=== PATIENT | male | born 1995 | race African-American/Black ===

== ENCOUNTER 2017-01-20 21:51 | Inpatient (IN) | payer BC ==
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
[2017-01-20 22:30] LABS: BASOPHILS 0.3 %; BASOPHILS ABSOLUTE 0.04 10/3/uL (0.0-0.16); EOSINOPHILS 1.3 %; EOSINOPHILS ABSOLUTE 0.18 10/3/uL (0.0-0.53); ER CBC TAT 0 Hrs 08 Mins; HEMATOCRIT 33.9 % (40.0-51.0); HEMOGLOBIN 11.1 g/dL (13.6-17.8); IMMATURE GRANULOCYTES 0.2 %; IMMATURE GRANULOCYTES ABSOLUTE 0.03 10/3/uL (0.0-0.11); LYMPHOCYTES 8.8 %; LYMPHOCYTES ABSOLUTE 1.22 10/3/uL (0.67-4.30); MEAN CORPUS HGB CONC 32.7 g/dL (32.0-36.0); MEAN CORPUSCULAR HEMOGLOB 25.9 pg (26.0-34.0); MEAN CORPUSCULAR VOLUME 79.2 fL (80-100); MEAN PLATELET VOLUME 9.9 fL (9.2-13.0); MONOCYTES ABSOLUTE 1.94 10/3/uL (0.21-1.20); NEUTROPHILS 75.4 %; NEUTROPHILS ABSOLUTE 10.48 10/3/uL (2.02-8.40); PLATELET COUNT 316 10/3/uL (150-400); RBC DISTRIBUTION WIDTH 13.2 % (12.0-16.0); RED CELL COUNT 4.28 10/6/uL (4.7-6.1); WHITE BLOOD CELLS 13.9 10/3/uL (4.5-10.5)
[2017-01-20 22:31] LABS: MANUAL DIFF NO %
[2017-01-20 22:36] LABS: INTERNATIONAL NORMAL RATI 1.3 UNITS (-); PARTIAL THROMBO TIME 27.8 SEC (22.5-37.2)
[2017-01-20 22:42] LABS: A/G RATIO 0.5 (0.7-1.9); ALBUMIN 2.9 G/DL (3.5-5.0); ALKALINE PHOSPHATASE 79 U/L (43-122); BUN (BLOOD UREA NITROGEN) 15 MG/DL (5-25); CALCIUM, SERUM 8.8 MG/DL (8.5-10.4); CHLORIDE, SERUM 95 MMOL/L (96-112); CO2 (CARBON DIOXIDE) 28 MMOL/L (23-31); CREATININE 1.01 MG/DL (0.70-1.30); GFR AFRICAN AMERICAN 124 ML/MIN (>=60); GFR NON AFRICAN AMERICAN 107 ML/MIN (>=60); GLOBULIN 5.3 G/DL (2.5-4.1); GLUCOSE, SERUM 107 MG/DL (60-99); POTASSIUM, SERUM 4.3 MMOL/L (3.5-5.2); SGOT(AST) 64 U/L (8-40); SGPT(ALT) 68 U/L (5-65); SODIUM, SERUM 132 MMOL/L (135-145); TOTAL BILIRUBIN 0.6 MG/DL (0-1.2); TOTAL PROTEIN 8.2 G/DL (6.0-8.5)
[2017-01-21] MEDS ORDERED: METHOC500B PO (00:22)
[2017-01-21] MEDS ORDERED: LOVENOX SC (00:22)
[2017-01-21 00:46] LABS: ASCORBIC ACID (UR NOT ORDER) NEG (NEG); BILIRUBIN, URINE NEGATIVE (NEG); ER URINALYSIS TAT 0 Hrs 20 Mins; KETONE, URINE NEGATIVE (NEG); LEUKOCYTE ESTERASE(NOT OR SMALL (NEG); NITRITE (URINE) NEG (NEG); WBC (NOT ORDERED) (RFLEX) 20 (0-5)
[2017-01-21 00:54] LABS: INFLUENZA A SCREEN NEGATIVE (NEGATIVE); INFLUENZA B SCREEN NEGATIVE (NEGATIVE)
[2017-01-21 00:56] LABS: PROCALCITONIN 0.99 ng/mL (<0.5)
[2017-01-22 04:24] LABS: BASOPHILS 0.1 %; BASOPHILS ABSOLUTE 0.02 10/3/uL (0.0-0.16); EOSINOPHILS 4.4 %; EOSINOPHILS ABSOLUTE 0.61 10/3/uL (0.0-0.53); HEMATOCRIT 30.9 % (40.0-51.0); HEMOGLOBIN 9.9 g/dL (13.6-17.8); IMMATURE GRANULOCYTES 0.4 %; IMMATURE GRANULOCYTES ABSOLUTE 0.05 10/3/uL (0.0-0.11); LYMPHOCYTES 8.8 %; LYMPHOCYTES ABSOLUTE 1.23 10/3/uL (0.67-4.30); MEAN CORPUSCULAR HEMOGLOB 25.4 pg (26.0-34.0); MEAN CORPUSCULAR VOLUME 79.2 fL (80-100); MEAN PLATELET VOLUME 10.7 fL (9.2-13.0); MONOCYTES 10.7 %; NEUTROPHILS 75.6 %; NEUTROPHILS ABSOLUTE 10.56 10/3/uL (2.02-8.40); PLATELET COUNT 325 10/3/uL (150-400); RBC DISTRIBUTION WIDTH 13.4 % (12.0-16.0)
[2017-01-22 04:26] LABS: MANUAL DIFF NO %
[2017-01-22 04:54] LABS: A/G RATIO 0.5 (0.7-1.9); ALBUMIN 2.4 G/DL (3.5-5.0); ALKALINE PHOSPHATASE 71 U/L (43-122); BUN (BLOOD UREA NITROGEN) 12 MG/DL (5-25); CALCIUM, SERUM 8.1 MG/DL (8.5-10.4); CHLORIDE, SERUM 100 MMOL/L (96-112); CO2 (CARBON DIOXIDE) 28 MMOL/L (23-31); CREATININE 0.66 MG/DL (0.70-1.30); DIRECT BILIRUBIN 0.1 MG/DL (0.0-0.4); GFR AFRICAN AMERICAN 162 ML/MIN (>=60); GFR NON AFRICAN AMERICAN 140 ML/MIN (>=60); GLOBULIN 4.4 G/DL (2.5-4.1); GLUCOSE, SERUM 123 MG/DL (60-99); INDIRECT BILIRUBIN(NOT ORDER) 0.2 MG/DL (0.1-0.9); SGOT(AST) 51 U/L (8-40); SGPT(ALT) 48 U/L (5-65); SODIUM, SERUM 135 MMOL/L (135-145); TOTAL BILIRUBIN 0.3 MG/DL (0-1.2); TOTAL PROTEIN 6.8 G/DL (6.0-8.5)
[2017-01-22 04:58] LABS: POTASSIUM, SERUM 3.4 MMOL/L (3.5-5.2)
[2017-01-23 06:03] LABS: BASOPHILS 0.2 %; BASOPHILS ABSOLUTE 0.02 10/3/uL (0.0-0.16); EOSINOPHILS 4.5 %; EOSINOPHILS ABSOLUTE 0.49 10/3/uL (0.0-0.53); HEMATOCRIT 29.5 % (40.0-51.0); HEMOGLOBIN 9.5 g/dL (13.6-17.8); IMMATURE GRANULOCYTES 0.3 %; IMMATURE GRANULOCYTES ABSOLUTE 0.03 10/3/uL (0.0-0.11); LYMPHOCYTES 9.4 %; LYMPHOCYTES ABSOLUTE 1.02 10/3/uL (0.67-4.30); MEAN CORPUS HGB CONC 32.2 g/dL (32.0-36.0); MEAN CORPUSCULAR HEMOGLOB 25.7 pg (26.0-34.0); MEAN CORPUSCULAR VOLUME 79.7 fL (80-100); MEAN PLATELET VOLUME 10.6 fL (9.2-13.0); MONOCYTES 10.8 %; MONOCYTES ABSOLUTE 1.17 10/3/uL (0.21-1.20); NEUTROPHILS 74.8 %; NEUTROPHILS ABSOLUTE 8.13 10/3/uL (2.02-8.40); PLATELET COUNT 338 10/3/uL (150-400); RBC DISTRIBUTION WIDTH 13.4 % (12.0-16.0); WHITE BLOOD CELLS 10.9 10/3/uL (4.5-10.5)
[2017-01-23 06:06] LABS: MANUAL DIFF NO %
[2017-01-24 04:42] LABS: BASOPHILS 0.3 %; BASOPHILS ABSOLUTE 0.03 10/3/uL (0.0-0.16); EOSINOPHILS 6.7 %; EOSINOPHILS ABSOLUTE 0.72 10/3/uL (0.0-0.53); HEMATOCRIT 29.6 % (40.0-51.0); HEMOGLOBIN 9.5 g/dL (13.6-17.8); IMMATURE GRANULOCYTES 0.3 %; IMMATURE GRANULOCYTES ABSOLUTE 0.03 10/3/uL (0.0-0.11); LYMPHOCYTES 14.9 %; LYMPHOCYTES ABSOLUTE 1.61 10/3/uL (0.67-4.30); MEAN CORPUS HGB CONC 32.1 g/dL (32.0-36.0); MEAN CORPUSCULAR HEMOGLOB 25.8 pg (26.0-34.0); MEAN CORPUSCULAR VOLUME 80.4 fL (80-100); MEAN PLATELET VOLUME 10.6 fL (9.2-13.0); MONOCYTES 8.6 %; MONOCYTES ABSOLUTE 0.93 10/3/uL (0.21-1.20); NEUTROPHILS 69.2 %; NEUTROPHILS ABSOLUTE 7.49 10/3/uL (2.02-8.40); PLATELET COUNT 361 10/3/uL (150-400); RBC DISTRIBUTION WIDTH 13.6 % (12.0-16.0); RED CELL COUNT 3.68 10/6/uL (4.7-6.1); WHITE BLOOD CELLS 10.8 10/3/uL (4.5-10.5)
[2017-01-24 04:43] LABS: MANUAL DIFF NO %
[2017-01-24 04:53] LABS: BUN (BLOOD UREA NITROGEN) 13 MG/DL (5-25); CALCIUM, SERUM 8.6 MG/DL (8.5-10.4); CHLORIDE, SERUM 101 MMOL/L (96-112); CO2 (CARBON DIOXIDE) 28 MMOL/L (23-31); CREATININE 0.65 MG/DL (0.70-1.30); GFR AFRICAN AMERICAN 163 ML/MIN (>=60); GFR NON AFRICAN AMERICAN 141 ML/MIN (>=60); GLUCOSE, SERUM 100 MG/DL (60-99); POTASSIUM, SERUM 3.6 MMOL/L (3.5-5.2); SODIUM, SERUM 139 MMOL/L (135-145)
[2017-01-24 13:12] LABS: % IRON SAT 13 % (20-50); FERRITIN 253 NG/ML (26-388); IRON BINDING CAPACITY 137 MCG/DL (250-450); IRON, SERUM 18 MCG/DL (31-162)
[2017-01-24 13:41] LABS: PROCALCITONIN 0.43 ng/mL (<0.5)
[2017-01-24 16:27] LABS: WBC (NOT ORDERED) (RFLEX) 0 (0-5)
[2017-01-24 17:09] LABS: ASCORBIC ACID (UR NOT ORDER) 20 (NEG); BILIRUBIN, URINE NEGATIVE (NEG); KETONE, URINE NEGATIVE (NEG); LEUKOCYTE ESTERASE(NOT OR NEG (NEG)
[2017-01-25 07:01] LABS: BASOPHILS 0.3 %; BASOPHILS ABSOLUTE 0.03 10/3/uL (0.0-0.16); EOSINOPHILS 7.7 %; EOSINOPHILS ABSOLUTE 0.69 10/3/uL (0.0-0.53); HEMOGLOBIN 9.2 g/dL (13.6-17.8); IMMATURE GRANULOCYTES 0.2 %; IMMATURE GRANULOCYTES ABSOLUTE 0.02 10/3/uL (0.0-0.11); LYMPHOCYTES 13.8 %; LYMPHOCYTES ABSOLUTE 1.23 10/3/uL (0.67-4.30); MEAN CORPUS HGB CONC 31.7 g/dL (32.0-36.0); MEAN CORPUSCULAR HEMOGLOB 25.1 pg (26.0-34.0); MEAN PLATELET VOLUME 10.1 fL (9.2-13.0); MONOCYTES 9.9 %; MONOCYTES ABSOLUTE 0.88 10/3/uL (0.21-1.20); NEUTROPHILS 68.1 %; NEUTROPHILS ABSOLUTE 6.07 10/3/uL (2.02-8.40); PLATELET COUNT 352 10/3/uL (150-400); RBC DISTRIBUTION WIDTH 13.8 % (12.0-16.0); RED CELL COUNT 3.67 10/6/uL (4.7-6.1); WHITE BLOOD CELLS 8.9 10/3/uL (4.5-10.5)
[2017-01-25 07:02] LABS: MANUAL DIFF NO %
[2017-01-25 07:06] LABS: BUN (BLOOD UREA NITROGEN) 13 MG/DL (5-25); CALCIUM, SERUM 8.9 MG/DL (8.5-10.4); CHLORIDE, SERUM 101 MMOL/L (96-112); CO2 (CARBON DIOXIDE) 26 MMOL/L (23-31); CREATININE 0.58 MG/DL (0.70-1.30); GFR AFRICAN AMERICAN 171 ML/MIN (>=60); GFR NON AFRICAN AMERICAN 148 ML/MIN (>=60); GLUCOSE, SERUM 86 MG/DL (60-99); POTASSIUM, SERUM 3.8 MMOL/L (3.5-5.2); SODIUM, SERUM 136 MMOL/L (135-145)
[2017-01-25 08:40] LABS: PLATELET ESTIMATE ADQ (ADEQUATE)
[2017-01-25 08:41] LABS: RBC MORPHOLOGY NORM (NORMAL)
[2017-01-26 18:11] LABS: A/G RATIO 0.5 (0.7-1.9); ALBUMIN 2.2 G/DL (3.5-5.0); ALKALINE PHOSPHATASE 76 U/L (43-122); BUN (BLOOD UREA NITROGEN) 10 MG/DL (5-25); CALCIUM, SERUM 8.8 MG/DL (8.5-10.4); CHLORIDE, SERUM 102 MMOL/L (96-112); CO2 (CARBON DIOXIDE) 23 MMOL/L (23-31); CREATININE 0.55 MG/DL (0.70-1.30); GFR AFRICAN AMERICAN 175 ML/MIN (>=60); GFR NON AFRICAN AMERICAN 151 ML/MIN (>=60); GLOBULIN 4.5 G/DL (2.5-4.1); GLUCOSE, SERUM 75 MG/DL (60-99); POTASSIUM, SERUM 4.5 MMOL/L (3.5-5.2); SGOT(AST) 51 U/L (8-40); SGPT(ALT) 61 U/L (5-65); SODIUM, SERUM 137 MMOL/L (135-145); TOTAL BILIRUBIN 0.4 MG/DL (0-1.2); TOTAL PROTEIN 6.7 G/DL (6.0-8.5)
[2017-01-27 05:29] LABS: BASOPHILS 0.2 %; BASOPHILS ABSOLUTE 0.03 10/3/uL (0.0-0.16); EOSINOPHILS 4.1 %; HEMOGLOBIN 9.4 g/dL (13.6-17.8); IMMATURE GRANULOCYTES 0.4 %; IMMATURE GRANULOCYTES ABSOLUTE 0.06 10/3/uL (0.0-0.11); LYMPHOCYTES 11.6 %; LYMPHOCYTES ABSOLUTE 1.69 10/3/uL (0.67-4.30); MEAN CORPUSCULAR HEMOGLOB 26.3 pg (26.0-34.0); MEAN CORPUSCULAR VOLUME 78.2 fL (80-100); MEAN PLATELET VOLUME 9.8 fL (9.2-13.0); MONOCYTES 8.4 %; MONOCYTES ABSOLUTE 1.22 10/3/uL (0.21-1.20); NEUTROPHILS 75.3 %; NEUTROPHILS ABSOLUTE 10.97 10/3/uL (2.02-8.40); RBC DISTRIBUTION WIDTH 14.1 % (12.0-16.0); RED CELL COUNT 3.58 10/6/uL (4.7-6.1)
[2017-01-27 05:30] LABS: MANUAL DIFF NO %; MEAN CORPUS HGB CONC 33.6 g/dL (32.0-36.0); PLATELET COUNT 500 10/3/uL (150-400); WHITE BLOOD CELLS 14.6 10/3/uL (4.5-10.5)
[2017-01-27 05:38] LABS: BUN (BLOOD UREA NITROGEN) 10 MG/DL (5-25); CALCIUM, SERUM 8.5 MG/DL (8.5-10.4); CHLORIDE, SERUM 104 MMOL/L (96-112); CO2 (CARBON DIOXIDE) 27 MMOL/L (23-31); CREATININE 0.68 MG/DL (0.70-1.30); GFR AFRICAN AMERICAN 160 ML/MIN (>=60); GFR NON AFRICAN AMERICAN 138 ML/MIN (>=60); GLUCOSE, SERUM 105 MG/DL (60-99); POTASSIUM, SERUM 3.6 MMOL/L (3.5-5.2); SODIUM, SERUM 140 MMOL/L (135-145)
[2017-01-27 17:39] LABS: PROCALCITONIN 0.24 ng/mL (<0.5)
[2017-01-28 06:24] LABS: BASOPHILS 0.2 %; BASOPHILS ABSOLUTE 0.03 10/3/uL (0.0-0.16); EOSINOPHILS ABSOLUTE 0.68 10/3/uL (0.0-0.53); HEMATOCRIT 26.8 % (40.0-51.0); HEMOGLOBIN 8.6 g/dL (13.6-17.8); IMMATURE GRANULOCYTES 0.7 %; IMMATURE GRANULOCYTES ABSOLUTE 0.09 10/3/uL (0.0-0.11); LYMPHOCYTES 12.1 %; LYMPHOCYTES ABSOLUTE 1.63 10/3/uL (0.67-4.30); MANUAL DIFF NO %; MEAN CORPUS HGB CONC 32.1 g/dL (32.0-36.0); MEAN CORPUSCULAR HEMOGLOB 25.7 pg (26.0-34.0); MEAN CORPUSCULAR VOLUME 80.2 fL (80-100); MEAN PLATELET VOLUME 9.2 fL (9.2-13.0); MONOCYTES 12.6 %; NEUTROPHILS 69.4 %; NEUTROPHILS ABSOLUTE 9.36 10/3/uL (2.02-8.40); PLATELET COUNT 508 10/3/uL (150-400); RBC DISTRIBUTION WIDTH 14.2 % (12.0-16.0); RED CELL COUNT 3.34 10/6/uL (4.7-6.1); WHITE BLOOD CELLS 13.5 10/3/uL (4.5-10.5)
[2017-01-29 08:23] LABS: BD FL SOURCE (NOT ORD) LEFT KNEE
[2017-01-29 08:34] LABS: BF TOTAL CELL CT (NOT ORD 364 /MM3; BODY FLUID RBC (NOT ORD) 1000 /MM3
[2017-01-29 09:13] LABS: BD FL LYMPH (NOT ORD) 59 %; BF BASO (NOT OF) 0 %; BF LARGE MONONUCLEAR 40 %; BODY FLUID EOS (NOT ORD) 0 %; BODY FLUID SEG (NOT ORD) 1 %
[2017-02-01 08:06] LABS: BASOPHILS 0.2 %; BASOPHILS ABSOLUTE 0.03 10/3/uL (0.0-0.16); EOSINOPHILS 3.8 %; EOSINOPHILS ABSOLUTE 0.49 10/3/uL (0.0-0.53); HEMATOCRIT 29.1 % (40.0-51.0); HEMOGLOBIN 9.4 g/dL (13.6-17.8); IMMATURE GRANULOCYTES 0.7 %; IMMATURE GRANULOCYTES ABSOLUTE 0.09 10/3/uL (0.0-0.11); LYMPHOCYTES 15.9 %; LYMPHOCYTES ABSOLUTE 2.07 10/3/uL (0.67-4.30); MEAN CORPUS HGB CONC 32.3 g/dL (32.0-36.0); MEAN CORPUSCULAR VOLUME 80.4 fL (80-100); MEAN PLATELET VOLUME 8.5 fL (9.2-13.0); MONOCYTES 5.3 %; MONOCYTES ABSOLUTE 0.69 10/3/uL (0.21-1.20); NEUTROPHILS 74.1 %; NEUTROPHILS ABSOLUTE 9.62 10/3/uL (2.02-8.40); PLATELET COUNT 637 10/3/uL (150-400); RBC DISTRIBUTION WIDTH 15.3 % (12.0-16.0); RED CELL COUNT 3.62 10/6/uL (4.7-6.1)
[2017-02-01 08:13] LABS: MANUAL DIFF NO %
[2017-08-24] MEDS ORDERED: NORCO1 TA1 PO (07:59)
[2017-08-24] MEDS ORDERED: ZANAFLEX 4 MG TA4 MG PO (07:59)
[2017-08-24] MEDS ORDERED: K500 PO (08:00)
== END 2017-02-03 16:33 | disposition home or self-care (01) | DRG 871 ==
LOC: ER 21:51 → ER/OF 01-21 01:24 → IMCU 01-21 06:15 → 4SO 01-22 13:47
PROVIDERS: Internal Medicine; Internal Medicine Infectious Disease; Nurse Practitioner Gerontology; Specialist
DX: A41.89 Other specified sepsis (principal); E43 Unspecified severe protein-calorie malnutrition; L89.152 Pressure ulcer of sacral region, stage 2; G82.20 Paraplegia, unspecified; F17.201 Nicotine dependence, unspecified, in remission; D50.9 Iron deficiency anemia, unspecified; E87.1 Hypo-osmolality and hyponatremia; M00.9 Pyogenic arthritis, unspecified; E46 Unspecified protein-calorie malnutrition; N39.0 Urinary tract infection, site not specified; T14.8 Other injury of unspecified body region; N40.0 Benign prostatic hyperplasia without lower urinary tract symptoms; X95.9XXS Assault by unspecified firearm discharge, sequela; Z79.01 Long term (current) use of anticoagulants; N31.9 Neuromuscular dysfunction of bladder, unspecified; Z68.20 Body mass index [BMI] 20.0-20.9, adult; M25.462 Effusion, left knee; B96.1 Klebsiella pneumoniae [K. pneumoniae] as the cause of diseases classified elsewhere; F43.21 Adjustment disorder with depressed mood
CPT/HCPCS: 71010; 72129; 73560-LT; 74177; 78806; 80048; 80053; 81001; 82248; 82728; 83540; 83550; 83605; 83690; 84132; 84145; 85025; 85610; 85730; 87040; 87070; 87075; 87077; 87086; 87186; 87205; 87389; 87804; 89051; 97110-GO; 97110-GP; 97162-GP; 97166-GO; 97530-GP; 97535-GO; 99285; A9270-GY; A9569; G8987-CK-GO; G8988-CJ-GO; J1956; J2916; J3260; J3370; Q9967